=== PATIENT | female | born 1985 | race African-American/Black ===

== ENCOUNTER 2018-09-19 21:13 | Emergency (ER) | payer MEDICAID ==
[~2018-09-19] VITALS: Ht 152.4 cm; Wt 105.0 kg
[~2018-09-19 21:13] MED LIST: ALBUTEROL; ALBUTEROL INHALER; XANAX
[2018-09-19] MEDS ORDERED: KETOROLAC 30MG/ML VIAL IM ONE (22:45)
[2018-09-19 23:11] LABS: CHLORIDE 111 mEq/L (98-107)
[2018-09-19 23:32] VITALS: BP 130/86
== END 2018-09-20 00:11 | disposition home or self-care (01) ==
LOC: ER 21:13
DX: M25.561 Pain in right knee (principal); F12.10 Cannabis abuse, uncomplicated; F17.210 Nicotine dependence, cigarettes, uncomplicated; Z98.1 Arthrodesis status; Z88.0 Allergy status to penicillin; W01.0XXA Fall on same level from slipping, tripping and stumbling without subsequent striking against object, initial encounter; Y93.89 Activity, other specified; Y92.89 Other specified places as the place of occurrence of the external cause
CPT/HCPCS: 36415; 73564; 80048; 84550; 96372; 99284; J1885; L1830; 29505